=== PATIENT | female | born 1985 | race Caucasian/White ===

== ENCOUNTER 2020-09-29 09:41 | Outpatient (CLI) | payer MEDICARE, MEDICAID, SELFPAY ==
--- NOTE | ~2020-09-29 | XR_ITS ---
XR lumbar spine 2-3V DATE: 09/29/2020 10:20 INDICATION: Low back pain TECHNIQUE: AP, lateral, coned lateral lumbosacral views COMPARISON: 09/17/2015 lumbar spine FINDINGS: Normal alignment of the lumbar spine. No fracture or bone destruction is evident. The inclu ded lower thoracic and lumbar pedicles are intact. There is minimal degenerative disc disease L3-4, mild degenerative disc disease at L4-5. The sacroiliac joints appear normal. Bilateral fallopian tube inserts are noted. IMPRESSION: Minimal degenerative disc disease at L3-4, mild degenerative disc disease at L4-5 Bilateral fallopian tube inserts Reviewed, dictated and finalized at location A. IMPRESSION: Minimal degenerative disc disease at L3-4, mild degenerative disc d isease at L4-5 Bilateral fallopian tube inserts
--- NOTE | ~2020-09-29 | MR_ITS ---
EXAMINATION: MR lumbar spine wo con EXAM DATE: 09/29/2020 10:55 INDICATION: Low back pain, bilateral leg pain and numbness left side worse. TECHNIQUE: Multi-sequential, multiplanar MR images of the lumbar spine were obtained without contrast . Sagittal T1, T2, T2 fat saturation images. Axial T2 weighted images. Comparison is made to prior examination from 10/17/2015. FINDINGS: There is mild disc disease L4-5 with 2 mm retrolisthesis, unchanged. The vertebral body and disc heights are otherwise well maintained. The vertebral bodies are otherwise aligned. The conus me dullaris terminates at the L1/2 level and has normal signal intensity and morphology. There are no hayes spicious marrow signal abnormalities. Paraspinal soft tissue is unremarkable. Level by level evaluation: T12-L1: Disc does not extend beyond the endplate margin. Facet arthropathy: Mild. Neural foraminal stenosis: No stenosis. Central canal stenosis: No stenosis. L1-L2: Disc does not extend beyond the endplate margin. Facet arthropathy: Mild. Neural foraminal stenosis: No stenosis. Central canal stenosis: No stenosis. L2-L3: Disc does not extend beyond the endplate margin. Facet arthropathy: Mild. Neural foraminal stenosis: No stenosis. Central canal stenosis: No stenosis. L3-L4: Disc does not extend beyond the endplate margin. Facet arthropathy: Mild. Neural foraminal stenosis: No stenosis. Central canal stenosis: No stenosis. L4-L5: There is a minimal diffuse disc bulge. Facet arthropathy: Mild. Neural foraminal stenosis: No stenosis. Central canal stenosis: No stenosis. L5-S1: Tiny annular fissure. Facet arthropathy: Mild. Neural foraminal stenosis: No stenosis. Central canal stenosis: No stenosis. IMPRESSION: Mild arthropathy. No stenosis. Reviewed, dictated and finalized at location A.
== END 2020-09-29 09:42 | disposition home or self-care (01) ==
DX: M51.26 Other intervertebral disc displacement, lumbar region (principal)
CPT/HCPCS: 72100; 72148

== ENCOUNTER 2022-03-06 15:38 | Outpatient (CLI) | payer MEDICARE, MEDICAID, SELFPAY ==
--- NOTE | ~2022-03-06 | MR_ITS ---
EXAMINATION: MR brain/brain stem wo/w con DATE: 03/06/2022 16:34 INDICATION: Pseudotumor cerebri. Headache. TECHNIQUE: Magnetic resonance imaging (MRI) of the brain and brainstem was performed without and with 20 mL MultiHance intravenous contrast. COMPARISON: None. FINDINGS: There is an empty sella. There is no intracranial hemorrhage, acute infarction, or abnormal intracranial mass lesion. There is a focus of increased T2-weighted signal intensity in the right fr ontoparietal deep white matter, which is normal as an isolated finding. The ventricles are normal in size. The paranasal sinuses are clear. The orbits are normal. The mastoid air cells are normal. IMPRESSION: 1. Empty sella. Reviewed, dictated and finalized at location A. IMPRESSION: 1. Empty sella.
== END 2022-03-06 15:39 | disposition home or self-care (01) ==
PROVIDERS: Visit Provider Specialist
DX: G93.2 Benign intracranial hypertension (principal)
CPT/HCPCS: 70553; A9577

== ENCOUNTER 2022-03-26 03:21 | Outpatient (CLI) | payer MEDICARE, MEDICAID, SELFPAY ==
[2022-03-20 09:51] VITALS: BMI 42.5
--- NOTE | 2022-03-20 09:52 | PC.NURSE ---
Pre Radiology instructions Report to the Outpatient Waiting Room, entrance under the green pavilion located off [facility], at time 0600 on date 03/26/22. Procedure Time: 0800. YOU MAY BE MONITORED AT HOSPITAL FOR UP TO 4 HOURS AFTER YOUR PROCEDURE. One visitor will be allowed to accompany the patient into the hospital. The visitor will be instructed to remain with patient at all times or leave the building due to restrictions. We will allow the visitor to come back to the postoperative area when patient is ready. NO children visitors allowed at this time. You and your visitor will be asked to self-screen and do not enter if you have any COVID symptoms. A mask is required within the hospital. Patients are to have no food or drink 6 hours prior to procedure time Driving will be restricted after the procedure, you must have a person to drive you home. Labs will be drawn in preop area and once reviewed, you will be taken to radiology area for procedure. When the procedure is completed, you will be taken to outpatient where you will be monitored for several hours. You may have one visitor in this area. Other than holding anti-coagulants, patient may take other medication(s) as scheduled. Prior to your appointment date patients are instructed to hold anti-coagulants after discussing with ordering provider to stop. If unable to discontinue anti-coagulants please notify radiologist. No aspirin or warfarin (Coumadin) for 7 days prior to the procedure. No clopidogrel (Plavix), ticagrelor (Brilinta), prasugrel (Effient) or dabigatran (Pradaxa) for 5 days prior to the procedure. No rivaroxaban (Xarelto), apixaban (Eliquis), dipyridamole (Aggrenox or Persantine) or cilostazol (Pletal) for 2 days prior to the procedure. Medications to discontinue per physician: N/A Date to take last dose: N/A Please leave all valuables, including medications, at home the day of procedure. The hospital will not accept responsibility for valuables. Wear comfortable, loose fitting clothing. Follow any additional instructions given to you from ordering provider. Telephone instructions given to PT - ANASTACIA ARIAS and asked if any additional questions and then verbalized understanding. Patient advised to call scheduling provider office or registration scheduling [phone] if any additional questions.
--- NOTE | ~2022-03-26 | XR_ITS ---
EXAMINATION: XR lumbar puncture diagnostic DATE: 03/26/2022 09:14 INDICATION: Benign intracranial hypertension. TECHNIQUE: The procedure including the risks and benefits was discussed with the patient. Risks discu ssed included spinal headache, cerebrospinal fluid leak, bleeding, and infection. The patient underst ood the risks and agreed to proceed. A timeout was performed to verify the patient's name, date of , and procedure to be performed. The skin overlying the L3-L4 level was prepped and draped in usual sterile fashion. Subcutaneous 1% lidocaine was used for local anesthesia. A 5 inch 22 gauge s cassandra needle was advanced under fluoroscopic guidance. The needle was removed and the entry site was cleaned and dressed. There were no immediate complications. A total of 1 fluoroscopic image(s) and o ne lateral radiograph were obtained. The amount of fluoroscopy time used during this procedure was 0. 3 minutes. The patient was taken to the nursing area for observation. FINDINGS: Real-time fluoroscopy demonstrates the needle at the L3-L4 level. Opening pressure was elev ated measuring 34 cm water. (Normal range is variably defined as 6-20 cm water and up to 25 cm water in obese patients. Pressure >25 cm water is one of the modified Dandy criteria for idiopathic intracr anial hypertension). 15.5 mL of clear, colorless fluid was collected in 4 tubes. IMPRESSION: 1. Successful fluoro-guided lumbar puncture with elevated opening pressure of 34 cm water consistent with provided history of benign intracranial hypertension. Reviewed, dictated and finalized at location A. FIGHTER IMPRESSION: 1. Successful fluoro-guided lumbar puncture with elevated opening pressure of 3 4 cm water consistent with provided history of benign intracranial hypertension .
[2022-03-26 06:47] VITALS: BP 135/80; PULSE 83; RESP 16; O2SAT 98
[2022-03-26 07:08] LABS: Glucose Point of Care 94 mg/dl (65-105)
[2022-03-26 07:22] LABS: Mean Platelet Volume 9.9 fl (7.4-10.4); Platelet Count Result 266 k/mm3 (150-375)
[2022-03-26 07:32] LABS: Prothrombin Time 12.7 Seconds (11.1-14.7)
[2022-03-26 09:00] VITALS: BP 130/74; PULSE 68; RESP 20; O2SAT 100
[2022-03-26 09:15] VITALS: BP 131/80; PULSE 68; RESP 20
[2022-03-26 09:45] VITALS: BP 125/80; PULSE 70; RESP 20
[2022-03-26 10:06] LABS: Glucose CSF 56 mg/dL (40-70); Total Protein CSF 32 mg/dL (12-60)
[2022-03-26 10:15] VITALS: BP 122/72; PULSE 74; RESP 20
[2022-03-26 10:28] LABS: Appearance CSF Clear (Clear); CSF source CSF; Color CSF Colorless (Colorless); Nucleated Cell CSF 10 /uL (0-5); Red Blood Cell CSF 0 (0-2)
[2022-03-26 10:36] LABS: Lymphocytes CSF 100 % (40-80)
[2022-03-26 10:45] VITALS: BP 118/70; PULSE 74; RESP 20
== END 2022-03-26 11:05 | disposition home or self-care (01) ==
PROVIDERS: PCP Internal Medicine; Referring Provider Student in an Organized Health Care Education/Training Program; Visit Provider Radiology Diagnostic Radiology
PROC: 009U3ZZ Drainage of Spinal Canal, Percutaneous Approach (ICD-10-PCS; CPT 62328; principal; 2022-03-26 08:00)
DX: G93.2 Benign intracranial hypertension (principal)
CPT/HCPCS: 36415; 62328; 82945; 82948; 84157; 85049; 85610; 87070; 89051

== ENCOUNTER 2022-04-02 09:22 | Outpatient (CLI) | payer MEDICARE, MEDICAID, SELFPAY ==
--- NOTE | ~2022-04-02 | MR_ITS ---
EXAMINATION: MR venography brain DATE: 04/02/2022 10:44 INDICATION: Papilledema. Increased intracranial pressure. TECHNIQUE: Magnetic resonance venography (MRV) of the brain was performed without intravenous contras t. Maximum intensity projection 3D-reconstructions were obtained. COMPARISON: Brain MRI 03/06/2022 FINDINGS: The superior sagittal sinus, internal cerebral veins, vena cava, straight sinus, transverse sinuses, and oblique sinuses are patent. IMPRESSION: 1. No thrombosis. Reviewed, dictated and finalized at location A. IGURATION MANAGEMENT ADVISOR IMPRESSION: 1. No thrombosis.
== END 2022-04-02 09:23 | disposition home or self-care (01) ==
PROVIDERS: PCP Internal Medicine; Visit Provider Student in an Organized Health Care Education/Training Program
DX: H47.11 Papilledema associated with increased intracranial pressure (principal); G93.2 Benign intracranial hypertension
CPT/HCPCS: 70544

== ENCOUNTER 2023-09-09 08:35 | Outpatient (CLI) | payer MEDICARE, MEDICAID, SELFPAY ==
--- NOTE | ~2023-09-09 | CT_ITS ---
EXAMINATION: CT BRAIN W/O DATE: 09/09/2023 09:30 INDICATION: Empty sella TECHNIQUE: Computed tomography (CT) of the head was performed without intravenous contrast. The dose- length product was 605.33 mGy-cm. Automated exposure control and iterative reconstruction technique w ere employed. COMPARISON: MRI brain dated 03/06/2020 FINDINGS: Normal brain parenchymal volume for age. Normal yee-white differentiation. No acute intrac ranial hemorrhage, infarction, mass or mass effect. No ventriculomegaly or midline shift. Midline sagittal images demonstrate a normal corpus callosum, c raniovertebral junction. Sella turcica is empty. Basilar cisterns are patent. Paranasal sinuses and mastoids are pneumatized. No depressed skull fractures. IMPRESSION: 1. No acute intracranial abnormality. Reviewed, dictated and finalized at location B.
--- NOTE | ~2023-09-09 | CT_ITS ---
EXAMINATION: CT chest abdomen pelvis w con DATE: 09/09/2023 09:36 CDT INDICATION: Lymphadenopathy TECHNIQUE: Computed tomography (CT) of the chest, abdomen, and pelvis was performed with 100 cc Omnip aque 350 intravenous contrast. The dose-length product was 1739.01 mGy-cm. COMPARISON: None FINDINGS: CHEST CT: No significant pleural or pericardial effusion. No mediastinal, hilar or axillary lymphadenopathy. No evidence for aortic aneurysm or dissection. Calcified granuloma present in the left upper lobe. No f ocal airspace consolidation. No suspicious pulmonary nodules or masses. No endobronchial lesions. No pneumothorax. ABDOMEN/PELVIS CT: There are small subcentimeter hypodensities in the right hepatic lobe, most likely benign. The spleen , pancreas, right adrenal gland and kidneys are unremarkable. There are coarse calcifications of the left adrenal gland, likely related to previous trauma or infection. Nonobstructive bowel gas pattern. Small fat-containing umbilical hernia. Gallbladder is present. There are changes of bilateral tubal ligation. No abnormal pelvic masses or fluid collections. No free air or free fluid. No significant v ascular abnormality. No lymphadenopathy. No acute osseous abnormality. IMPRESSION: 1. Unremarkable CT chest abdomen pelvis. No lymphadenopathy. Reviewed, dictated and finalized at location B.
--- NOTE | ~2023-09-09 | XR_ITS ---
Clinical Indication: Lymphadenopathy PA and lateral views of the chest: Comparison: 02/23/2017 Findings: The lungs are clear, without evidence of focal consolidation or pleural effusion. Cardiome diastinal silhouette is within normal limits. Bones and soft tissues are unremarkable. Impression: Normal chest. Reviewed, dictated and finalized at [facility]. Impression: Normal chest.
[2023-09-09 09:14] LABS: Estimated Glomerular Filt Rate > 60
== END 2023-09-09 08:36 | disposition home or self-care (01) ==
LOC: ANHIMG 08:35
PROVIDERS: PCP Internal Medicine; Visit Provider Internal Medicine
DX: R59.1 Generalized enlarged lymph nodes (principal); R59.0 Localized enlarged lymph nodes; R14.0 Abdominal distension (gaseous); R63.4 Abnormal weight loss; R61 Generalized hyperhidrosis
CPT/HCPCS: 70450; 71046; 71260; 74177; Q9967

== ENCOUNTER 2023-11-17 09:21 | Outpatient (CLI) | payer MEDICARE, MEDICAID, SELFPAY ==
--- NOTE | ~2023-11-17 | US_ITS ---
EXAMINATION: US soft tissue head and neck DATE: 11/17/2023 11:12 INDICATION: Enlarged lymph node and neck. TECHNIQUE: Multiple grayscale and Doppler ultrasound images of the head and neck were obtained. COMPARISON: None FINDINGS: The left and right anterior neck and right posterior neck demonstrate normal-sized lymph no gómez. The largest lymph node is in the high left internal jugular chain with short axis diameter of 0. 7 cm. IMPRESSION: 1. Normal lymph nodes. The biopsy was canceled. Reviewed, dictated and finalized at location A.
== END 2023-11-17 09:22 | disposition home or self-care (01) ==
LOC: ANHIMG 09:23
PROVIDERS: PCP Internal Medicine; Visit Provider Internal Medicine
DX: R59.0 Localized enlarged lymph nodes (principal)
CPT/HCPCS: 76536

== ENCOUNTER 2024-01-05 07:27 | Outpatient (CLI) | payer MEDICARE, MEDICAID, SELFPAY ==
--- NOTE | ~2024-01-05 | CT_ITS ---
EXAMINATION: CT soft tissue neck w con DATE: 01/05/2024 07:57 INDICATION: Cervical lymphadenopathy. TECHNIQUE: Computed tomography (CT) of the neck was performed with 75 mL Omnipaque-350 intravenous co ntrast. Automated exposure control and iterative reconstruction technique were employed. The dose-dian gth product was 545.85 mGy-cm. COMPARISON: CT chest 09/09/2023, ultrasound 11/17/2023 FINDINGS: There are no pathologically enlarged lymph nodes. There is 0% stenosis of the proximal inte rnal carotid arteries relative to normal distal artery lumen diameters. The pharynx and larynx are no rmal. There is mild cervical spondylosis. IMPRESSION: 1. No lymphadenopathy. Reviewed, dictated and finalized at location A. IMPRESSION: 1. No lymphadenopathy.
[2024-01-05 07:48] LABS: Estimated Glomerular Filt Rate > 60
== END 2024-01-05 07:28 | disposition home or self-care (01) ==
PROVIDERS: PCP Internal Medicine
DX: R59.0 Localized enlarged lymph nodes (principal)
CPT/HCPCS: 70491; Q9967